=== PATIENT | female | born 1975 | race Caucasian/White ===

== ENCOUNTER 2016-11-12 02:02 | Inpatient (IN) | payer OTHER ==
[2016-11-11 11:51] LABS: MANUAL DIFF NEEDED? NO
[2016-11-11 11:52] LABS: URINE MICRO REVIEW NEEDED? NO; URINE SOURCE CLEAN CATCH
[2016-11-11 12:00] LABS: BASO% 0.5 % (0.0-0.8); EOS# 0.23 X1000 (0.0-0.7); EOS% 2.6 % (0.0-10.0); HEMATOCRIT 40.2 % (37.0-47.0); HEMOGLOBIN 13.1 g/dL (12.0-16.0); LYMPH# 1.94 X1000 (1.2-3.4); LYMPH% 22.1 % (20.5-51.1); MCH 27.8 PG (27-31); MCHC 32.6 g/dL (33-37); MCV 85.2 FL (81-99); MONO# 0.73 X1000 (0.11-0.59); MONO% 8.3 % (1.7-9.3); MPV 11.9 FL (7.4-10.4); NEUT% 66.5 % (42.2-75.2); PLT 222 X1000 (130-400); RBC 4.72 XMIL (4.2-5.4)
[2016-11-11 12:14] LABS: BILIRUBIN URINE NEGATIVE (NEGATIVE); BLOOD URINE NEGATIVE (NEGATIVE); COLOR STRAW; GLUCOSE URINE NEGATIVE (NEGATIVE); LEUKOCYTES URINE NEGATIVE (NEGATIVE); NITRITE URINE NEGATIVE (NEGATIVE); PROTEIN URINE NEGATIVE (NEGATIVE); SP GRAVITY URINE 1.007; TURBIDITY URINE CLEAR (CLEAR); UROBILINOGEN URINE NORMAL (NORMAL)
[2016-11-11 12:15] LABS: UR EPITHELIAL CELLS <10 /HPF (<10); URINE BACTERIA NEGATIVE /HPF; URINE RBC <10 /HPF (<10); URINE WBC <10 /HPF (<10)
--- NOTE | 2016-11-12 01:08 | HISTORY AND PHYSICAL ---
PREOPERATIVE DIAGNOSIS: Pelvic pain. PLANNED PROCEDURE: Dual procedure, abdominal hysterectomy with abdominoplasty. Please refer to Dr. Simon's dictation concerning the abdominoplasty. HISTORY OF PRESENT ILLNESS: Ms Butler is a 41-year-old, 3 para 2-1-0-2, with a history of 3 deliveries and a bilateral tubal ligation, who has been experiencing pelvic pain over the past few months, unresponsive to hormonal treatment. She desires definitive treatment. PAST SURGICAL HISTORY: Cholecystectomy, breast reduction, delivery. HISTORY: As before. ALLERGIES: No known drug allergies.. MEDICATIONS: Nexium and Bystolic. SOCIAL HISTORY: She denies tobacco use. She has no other complaints. PHYSICAL EXAM: VITAL SIGNS: Height 71 inches. Weight 183. Blood pressure 122/80. GENERAL: She is alert and cooperative, in no distress. NECK: Supple. LUNGS: Clear. HEART: Regular sinus rhythm. ABDOMEN: Soft. PELVIC: Uterus is enlarged. No adnexal masses. Ultrasound done, on 08/2015, reveals an enlarged uterus at 107 mL, and what appears to be adenomyosis in the scar, ovaries are normal. ASSESSMENT: As above. PLAN: Abdominal hysterectomy with abdominoplasty.
[2016-11-12] MEDS ORDERED: KEFZOL 2 GM/D5W 50 ML ONE (06:14)
[2016-11-12] MEDS ORDERED: REGLAN ONE (06:14)
[2016-11-12] MEDS ORDERED: PEPCID ONE (06:14)
[2016-11-12] MEDS ORDERED: LR 1,000 ML ONE ×2 (06:14→12:44)
[2016-11-12] MEDS ORDERED: TRANSDERM-SCOP ONE (06:14)
[2016-11-12] MEDS ORDERED: METHYLENE BLUE 1% ONE (06:50)
[2016-11-12] MEDS ORDERED: NS 250 ML ONE (06:50)
[2016-11-12] MEDS ORDERED: BACITRACIN ONE (06:50)
[2016-11-12] MEDS ORDERED: EXPAREL 1.3% ONE (06:51)
[2016-11-12 07:35] LABS: URINE MICRO REVIEW NEEDED? NO; URINE SOURCE CATH
[2016-11-12 07:50] LABS: BILIRUBIN URINE NEGATIVE (NEGATIVE); BLOOD URINE NEGATIVE (NEGATIVE); COLOR STRAW; GLUCOSE URINE NEGATIVE (NEGATIVE); LEUKOCYTES URINE NEGATIVE (NEGATIVE); NITRITE URINE NEGATIVE (NEGATIVE); PH URINE 6.5; PROTEIN URINE NEGATIVE (NEGATIVE); SP GRAVITY URINE 1.003; TURBIDITY URINE CLEAR (CLEAR); UROBILINOGEN URINE NORMAL (NORMAL)
[2016-11-12 07:51] LABS: UR EPITHELIAL CELLS <10 /HPF (<10); URINE BACTERIA NEGATIVE /HPF; URINE RBC <10 /HPF (<10); URINE WBC <10 /HPF (<10)
[2016-11-12] MEDS ORDERED: LEVSIN-SL SL PRN (08:37)
--- NOTE | 2016-11-12 09:33 | OPERATIVE NOTE ---
PROCEDURE DATE: 11/12/2016 DATE OF PROCEDURE: 11/12/2016. PREOPERATIVE DIAGNOSIS: Pelvic pain. SECONDARY DIAGNOSIS: Enlarged uterus. POSTOPERATIVE DIAGNOSES: Same. PROCEDURE: Transabdominal hysterectomy with bilateral salpingectomy, incidental cystotomy with repair. ESTIMATED BLOOD LOSS: 200 mL. FINDINGS: Slightly enlarged uterus. Dense bladder adhesions to the cervix. SPECIMENS: Uterus, cervix, tubes. DRAINS: Riddle catheter. A Riddle catheter is to stay for at least 7 days. DISPOSITION: Turn patient over to Dr. Aurora conner for plastic procedures. CONSENT: Ms. Butler is a 41-year-old, 3, para 2, for the above diagnoses had questions answered and consent verified. PROCEDURE IN DETAIL: The patient was brought to the operating room, placed under general endotracheal anesthesia, and prepped and draped in the supine position with Riddle catheter in place. A Pfannenstiel skin incision was made across the old scar. It should be noted that Dr. Simon had previously marked the areas where he was going to perform her surgery. The incision was carried down through the fascia. The fascia was nicked in the midline and the incision carried out laterally. Increased bleeding from neovascular controlled with the suture and electrocautery. Midline identified. Peritoneum entered bluntly. The omental adhesions to the anterior peritoneum were noted; these pushed to the side. O' Alvaro-O'Cuevas was placed. Bladder and bowel were packed away. Using the LigaSure, the tubes were dissected off. Then the supporting ligaments of the round and utero-ovarian grasped, cauterized and cut. The anterior/posterior leaves of the broad ligament were grasped, cauterized, and cut. Low on the patient's right side near the internal opening of the cervix, using the LigaSure, there was what was suspected to be a cystotomy opening. So, this was identified and then the bladder mucosa was dissected off of the cervix sharply and pushed away. Then the supporting ligaments of the cervix grasped with a straight clamp, cut and suture ligated down to the level of the uterosacrals which were clamped with a curved clamp. The vaginal mucosa was cut. These were tied off. Then, the specimen was removed. The anterior/posterior leaves of the cuff were then grasped with Jaime's, and this was closed with [id number] stitch. Once this was known to be hemostatic, attention was turned to the bladder injury. This was identified. The mucosal layer was closed with 3-0 Vicryl and then the mucoperiosteal layer was imbricated over with 3-0 Vicryl running and locking. Then, the bladder was filled with 100 mL of sterile water. It was noted to be water tight. So, at this point, the bladder repair was completed. Inspection revealed some bleeding on the right side of the cuff; this was control with [id number] stitch of 0 Polysorb. Then there was some bleeding from the left side near the ovary; this was also controlled with a fsodwj-mq-jyxid stitch of 0 Vicryl. Once this was done, no bleeding was noted. The retractor was removed. The laps were removed. The peritoneum was closed with chromic. Muscle came together nicely in the midline. No sutures. Fascia was closed with 0 Polysorb running nonlocking. Subcutaneous was irrigated and noted to be hemostatic. Skin was closed with aline. At this point, the case was turned over to Dr. Simon.
[2016-11-12] MEDS: KEFZOL 1 GM/D5W 50 ML ONE ×2 (10:40→10:55)
[2016-11-12] MEDS ORDERED: DIPRIVAN 1% ONE (12:22)
[2016-11-12] MEDS ORDERED: FENTANYL ONE ×2 (12:22→12:23)
[2016-11-12] MEDS ORDERED: VERSED ONE (12:24)
[2016-11-12] MEDS ORDERED: NORCURON ONE (12:27)
[2016-11-12] MEDS ORDERED: EPHEDRINE ONE (12:27)
[2016-11-12] MEDS ORDERED: NEOSTIGMINE ONE (12:27)
[2016-11-12] MEDS ORDERED: ZOFRAN ONE (12:27)
[2016-11-12] MEDS ORDERED: XYLOCAINE-MPF 2% ONE (12:28)
[2016-11-12] MEDS ORDERED: ROBINUL ONE (12:28)
[2016-11-12] MEDS ORDERED: DECADRON ONE (12:28)
[2016-11-12] MEDS ORDERED: CLAVE SECONDARY SET 11953 ONE (12:28)
[2016-11-12] MEDS ORDERED: LR 5,000 ML ONE (12:28)
[2016-11-12] MEDS ORDERED: PHENERGAN IV PRN (12:37)
[2016-11-12] MEDS ORDERED: NARCAN IV PRN (12:37)
[2016-11-12] MEDS ORDERED: ZOFRAN IV PRN (12:37)
[2016-11-12] MEDS ORDERED: BENADRYL IV PRN (12:37)
[2016-11-12] MEDS ORDERED: DEMEROL PCA VIAL IV PRN (12:37)
[2016-11-12] MEDS ORDERED: SODIUM CHLORIDE 0.9% INJ PRN (12:37)
[2016-11-12] MEDS ORDERED: LR 1,000 ML IV SCH (12:38)
[2016-11-12] MEDS ORDERED: DEMEROL PCA VIAL ONE (12:44)
[2016-11-12] MEDS ORDERED: DEMEROL ONE (12:48)
[2016-11-12] MEDS: BYSTOLIC PO SCH (15:59)
--- NOTE | 2016-11-12 16:09 | OPERATIVE NOTE ---
PROCEDURE DATE: 11/12/2016 PROCEDURE: Mini-abdominoplasty. SURGEON: Dr. Aruora MD ICD-10 DIAGNOSIS CODE: 41.1, cosmetic surgery. CPT CODE: 62788-G, cosmetic abdominoplasty. INDICATIONS FOR PROCEDURE: The patient is a 41-year-old white female who is an old patient of mine, who has had 3 C-sections, has an indented scar and skin and fat that hangs over it. She now needs a total abdominal hysterectomy to be performed by Dr. Aguilar, so she felt it was a good opportunity to take care of her body contouring issues. She is an excellent candidate for a mini-abdominoplasty, because she is very tall, has a long torso and a very high umbilicus. She does not have enough skin laxity to have a full abdominoplasty and we will tighten her muscles. She is seen in the office for informed consent on 11/17/2016. At that point, she understood that she would have a mini-abdominoplasty and the goal of this procedure was to improve the contours of her lower abdomen. She understands that we would do a skin excision on the lower abdomen, do liposuction of the flanks, tighten her muscles and shift her umbilicus down from the back side. She understands that the general risks include infection, blood loss, blood clots in legs, heart problems, lung problems, allergic reactions, or blood and serum collections in the operative sites that might require drainage. She understands exact size and shape cannot be guaranteed as with nonoperative abdomens there can be some asymmetry from side to side. She knows her skin incisions will be from the lower pelvic area to lower pelvic area on each side. That is where the scars will be. She understands we will move her umbilicus downward, but from the backside and there should not be incisions around it. She knows her lower abdomen will have numbness for a while because the skin nerves get cut. She understands she cannot lift anything heavier than 5-10 pounds for 8 weeks because of the muscle plication. She knows she cannot have a breast reconstruction with a TRAM flap and she knows this is cosmetic surgery and this portion of her operation does not go to her insurance company. DESCRIPTION OF PROCEDURE: The patient was brought to the operating room after she was marked in outpatient surgery for the mini- abdominoplasty in the standing position. She went to the operating room, had general anesthesia and then the hernandez were reviewed with Dr. Aguilar and then he proceeded to do a total abdominal hysterectomy. When he was completed, the abdomen was re- prepped and draped. She was remarked for the mini-abdominoplasty in the recliner position. The incision was made below Dr. Aguilar's entrance incision for the hysterectomy and dissection was carried up to the level of the umbilicus. The umbilicus was freed from the muscle and then dissection was carried up the central part of the abdomen to the xiphoid area. She was then put in a flexed position. The amount of skin that needed to be excised was marked and excised. She was temporally tacked closed with silk sutures, and then liposuction was done of the flanks and 2 areas of fat that she had over her lower rib cage under her breasts. She was then re-opened. The muscles were plicated with #1 Surgilon [id number] stitches in the center. The previous umbilical spot was reinforced with Surgilons prior to doing the midline muscle plication. She was irrigated with bacitracin solution. Hemostasis was achieved with electrocautery. She has injected with Exparel for postoperative pain control in the central muscles, the lateral muscles and the inferior skin incision. She was tacked closed over 3 drains with silk sutures. Prior to doing that, the umbilicus was refixed to the muscle with two #3 white Mersilene stitches placed in a horizontal mattress fashion. She was tacked closed over 3 drains, and then she was closed with interrupted 2-0 Polysorb sutures in the fat, a running 3-0 Polysorb deep dermal suture, followed by a running 4-0 Biosyn subcuticular stitch. The drains were secured with silk drain stitches. The patient tolerated the procedure well. She was transferred to recovery room in good condition.
[2016-11-12] MEDS: KEFZOL 1 GM/D5W 50 ML IV SCH (18:38)
[2016-11-12] MEDS: PERIDEX MT SCH (20:08)
[2016-11-12] MEDS: LR 1,000 ML IV SCH (20:20)
[2016-11-12] MEDS ORDERED: PEPCID PO SCH (21:00)
[2016-11-12] MEDS ORDERED: PERIDEX MT SCH (21:00)
[2016-11-12] MEDS ORDERED: PERICOLACE PO ONE (21:00)
[2016-11-13] MEDS: LR 1,000 ML IV SCH ×5 (03:06→12:14)
[2016-11-13] MEDS: KEFZOL 1 GM/D5W 50 ML IV SCH ×2 (03:23→11:20)
[2016-11-13 05:29] LABS: MANUAL DIFF NEEDED? NO
[2016-11-13 05:45] LABS: BASO% 0.3 % (0.0-0.8); EOS# 0.04 X1000 (0.0-0.7); EOS% 0.4 % (0.0-10.0); HEMATOCRIT 29.7 % (37.0-47.0); HEMOGLOBIN 9.7 g/dL (12.0-16.0); IMM GRAN# 0.02 X1000 (0.0-0.04); IMM GRAN% 0.2 % (0.0-0.5); LYMPH# 1.47 X1000 (1.2-3.4); LYMPH% 13.1 % (20.5-51.1); MCH 28.1 PG (27-31); MCHC 32.7 g/dL (33-37); MCV 86.1 FL (81-99); MONO# 1.33 X1000 (0.11-0.59); MONO% 11.9 % (1.7-9.3); NEUT% 74.1 % (42.2-75.2); PLT 172 X1000 (130-400); RBC 3.45 XMIL (4.2-5.4)
[2016-11-13] MEDS: PERIDEX MT SCH (08:45)
[2016-11-13] MEDS: BYSTOLIC PO SCH (08:45)
[2016-11-13] MEDS: PERCOCET-10 PO PRN ×3 (08:59→17:07)
[2016-11-13 11:49] VITALS: BP 126/65
== END 2016-11-13 17:48 | disposition home or self-care (01) | DRG 742 ==
LOC: SURHOLD 02:02 → 4N 12:27
PROVIDERS: ADMIT Obstetrics & Gynecology; ATTEND Surgery Plastic and Reconstructive Surgery
PROC: 0TQB0ZZ Repair Bladder, Open Approach (ICD-10-PCS; 2016-11-12)
PROC: 0W0F0ZZ Alteration of Abdominal Wall, Open Approach (ICD-10-PCS; 2016-11-12)
PROC: 0UT90ZZ Resection of Uterus, Open Approach (ICD-10-PCS; principal; 2016-11-12 07:03)
PROC: 0UTC0ZZ Resection of Cervix, Open Approach (ICD-10-PCS; 2016-11-12 07:03)
PROC: 0UT70ZZ Resection of Bilateral Fallopian Tubes, Open Approach (ICD-10-PCS; 2016-11-12 07:03)
DX: N85.2 Hypertrophy of uterus (principal); N99.71 Accidental puncture and laceration of a genitourinary system organ or structure during a genitourinary system procedure; K21.9 Gastro-esophageal reflux disease without esophagitis; R00.0 Tachycardia, unspecified; L98.7 Excessive and redundant skin and subcutaneous tissue; K66.0 Peritoneal adhesions (postprocedural) (postinfection); Z79.899 Other long term (current) drug therapy; Z41.1 Encounter for cosmetic surgery
CPT/HCPCS: 81001; 84703; 85025; 86850; 86900; 86901; 88300; 88307; 94761; 94799; C9290; J0690; J1100; J2175; J2250; J2405; J2550; J3010; J7050; J7120; Q9968; J2710